=== PATIENT | female | born 1995 | race Caucasian/White ===

== ENCOUNTER 2023-02-06 12:00 | Outpatient (REF) | payer BC, SELFPAY ==
[2023-02-06 11:50] LABS: Influenza Virus A Antigen Negative
[2023-02-06 11:51] LABS: Influenza Virus B Antigen Negative; Internal Control Within Normal Limits; SARS-CoV-2 Ag POSITIVE (NEGATIVE)
== END 2023-02-06 12:01 | disposition home or self-care (01) ==
LOC: LAB 12:00
PROVIDERS: PCP Nurse Practitioner Family; Visit Provider Nurse Practitioner Family
DX: J06.9 Acute upper respiratory infection, unspecified (principal)
CPT/HCPCS: 87804; 87811

== ENCOUNTER 2023-02-11 20:40 | Outpatient (REF) | payer BC, SELFPAY ==
[2023-02-15 08:12] LABS: Age Gdln ACOG Testing Note (.); IGP, rfx Aptima HPV ASCU Note (.)
== END 2023-02-11 20:41 | disposition home or self-care (01) ==
LOC: LAB 20:40
PROVIDERS: PCP Nurse Practitioner Family; Visit Provider Obstetrics & Gynecology
DX: Z12.4 Encounter for screening for malignant neoplasm of cervix (principal)
CPT/HCPCS: G0145

== ENCOUNTER 2024-08-25 15:08 | Outpatient (REF) | payer BC, SELFPAY ==
[2024-08-28 14:08] LABS: Age Gdln ACOG Testing Note (.); HPV Aptima Negative (Negative); IGP, Aptima HPV, rfx 16/18,45 Note (.)
== END 2024-08-25 15:09 | disposition home or self-care (01) ==
LOC: LAB 15:08
PROVIDERS: PCP Nurse Practitioner Family; Visit Provider Obstetrics & Gynecology
DX: Z01.419 Encounter for gynecological examination (general) (routine) without abnormal findings (principal)
CPT/HCPCS: 87624; 88175